=== PATIENT | female | born 1940 | race Hispanic/Latino ===

== ENCOUNTER 2017-02-24 10:02 | Emergency (ER) | payer BC, MEDICARE ==
[2017-02-24 10:02] VITALS: BMI 32.0
[2017-02-24 10:38] VITALS: TEMP 98.1
[2017-02-24] MEDS ORDERED: HYDROmorphone 1 mg/ml ISec IVP STA (10:39)
--- NOTE | 2017-02-24 11:23 | ED PDOC ---
Arrival/HPI - General Chief Complaint: Lower Extremity Problem/Injury Time Seen by Provider: 02/24/17 10:30 Historian: Patient - History of Present Illness Narrative History of Present Illness (Text): 02/24/17 11:26 76 yo F w/ PMH of HTN, presents with pain, swelling and redness to the R great toe x 2 days, symptoms started abruptly last night. Denies fevers, chills, trauma, injury, decrease in ROM, numbness. Has no additional complaints. PMD Aditi Past Medical History - Provider Review Nursing Documentation Reviewed: Yes - Infectious Disease Hx of Infectious Diseases: None - Cardiac Hx Cardiac Disorders: Yes Hx Hypertension: Yes - Pulmonary Hx Respiratory Disorders: No - Neurological Hx Neurological Disorder: No - HEENT Hx HEENT Disorder: No - Renal Hx Renal Disorder: No - Endocrine/Metabolic Hx Endocrine Disorders: No - Hematological/Oncological Hx Blood Disorders: No - Integumentary Hx Dermatological Disorder: No - Musculoskeletal/Rheumatological Hx Musculoskeletal Disorders: No - Gastrointestinal Hx Gastrointestinal Disorders: No - Genitourinary/Gynecological Hx Genitourinary Disorders: No - Psychiatric Hx Psychophysiologic Disorder: No Hx Substance Use: No - Surgical History Hx Hysterectomy: Yes - Anesthesia Hx Anesthesia: Yes Hx Anesthesia Reactions: No - Suicidal Assessment Feels Threatened In Home Enviroment: No Family/Social History - Physician Review Nursing Documentation Reviewed: Yes Family/Social History: Unknown Family HX Smoking Status: Unknown If Ever Smoked Hx Alcohol Use: No Hx Substance Use: No Allergies/Home Meds Allergies/Adverse Reactions: Allergies No Known Allergies Allergy (Verified 10/29/14 11:13) Home Medications: Home Meds Medication Instructions Recorded Confirmed Azilsartan Med/Chlorthalidone 40 mg PO DAILY 02/24/17 02/24/17 [Edarbyclor 40-25 mg Tablet] Review of Systems - Review of Systems Constitutional: absent: Fatigue, Weight Change, Fevers Musculoskeletal: Arthralgias, Joint Swelling. absent: Back Pain, Neck Pain Skin: absent: Rash, Pruritis, Skin Lesions Physical Exam Vital Signs Reviewed: Yes Vital Signs Temp Pulse Resp BP Pulse Ox 02/24/17 12:33 66 17 140/70 100 02/24/17 11:42 64 18 145/68 100 02/24/17 10:02 98.1 F 65 17 148/71 98 Temperature: Afebrile Blood Pressure: Normal Pulse: Regular Respiratory Rate: Normal Appearance: Positive for: Well-Appearing, Non-Toxic, Comfortable Pain Distress: Moderate Mental Status: Positive for: Alert and Oriented X 3 - Systems Exam Lower Extremity: Present: NORMAL PULSES, Capillary Refill < 2 s, Other (R foot : +erythema, edema and tenderness to the 1st MTP. ). No: CALF TENDERNESS, Deformity, Temperature Abnormalties, Neurovascularly Intact Neurological: Present: GCS=15, CN II-XII Intact, Motor Func Grossly Intact, Normal Sensory Function Skin: Present: Warm, Dry, Normal Color. No: Rashes Medical Decision Making ED Course and Treatment: 02/24/17 11:27 76 yo F w/ PMH of HTN, presents with pain, swelling and redness to the R great toe x 2 days, symptoms started abruptly last night. Diagnosis of gout discussed with the patient in great detail. Given a dose of indocin 25 mg PO, colchinine 1.2 mg PO and tramadol 50 mg PO for acute onset of the attack, will give another 0.6 mg PO dose of colchichine 1 hour after the initial dose. On re-evaluation, patient reports mild improvement of pain. Based on history, exam and diagnostic results plan will be for outpatient follow up. Patient advised to follow up with primary care physician in 1-2 days without fail. Advised to take medication as prescribed. Return to the emergency room at any time for any new or worsening symptoms. Patient states she fully agrees with and understands discharge instructions. States that she agrees with the plan and disposition. Verbalized and repeated discharge instructions and plan. I have given the patient opportunity to ask any additional questions. - Medication Orders Current Medication Orders: Discontinued Medications Colchicine (Colocrys) 1.2 mg PO STAT STA Stop: 02/24/17 11:08 Last Admin: 02/24/17 11:26 Dose: 1.2 mg Colchicine (Colocrys) 0.6 mg PO ONCE ONE Stop: 02/24/17 12:11 Last Admin: 02/24/17 12:31 Dose: 0.6 mg Indomethacin (Indocin) 25 mg PO STAT STA Stop: 02/24/17 11:09 Last Admin: 02/24/17 11:26 Dose: 25 mg MAR Pain Assessment Document 02/24/17 11:26 SF (Rec: 02/24/17 11:27 SF [id number]) Pain Reassessment Is this a pain reassessment? Yes Sleep Is patient sleeping during reassessment? No Presence of Pain Presence of Pain Yes Pain Scale Used Pain Scale Used Numeric Tramadol HCl (Ultram) 50 mg PO STAT STA Stop: 02/24/17 12:19 Last Admin: 02/24/17 12:32 Dose: 50 mg MAR Pain Assessment Document 02/24/17 12:32 SF (Rec: 02/24/17 12:32 [facility]-[id number]) Pain Reassessment Is this a pain reassessment? Yes Sleep Is patient sleeping during reassessment? 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 Disposition/Present on Arrival - Present on Arrival Any Indicators Present on Arrival: No History of DVT/PE: No History of Uncontrolled Diabetes: No Urinary Catheter: No History of Decub. Ulcer: No History Surgical Site Infection Following: None - Disposition Have Diagnosis and Disposition been Completed?: No Diagnosis: Gout Disposition: HOME/ ROUTINE Disposition Time: 11:31 Patient Plan: Discharge Condition: STABLE Discharge Instructions (ExitCare): Gout (ED) Print Language: [place] Additional Instructions: Thank you for letting us take care of you today. You were treated for gout. The emergency medical care you received today was directed at your acute symptoms. If you were prescribed any medication, please fill it and take as directed. It may take several days for your symptoms to resolve. Return to the Emergency Department if your symptoms worsen, do not improve, or if you have any other problems. Please contact your doctor in 2 days for re-evaluation and follow up. Bring any paperwork you were given at discharge with you along with any medications you are taking to your follow up visit. Our treatment cannot replace ongoing medical care by a primary care provider (PCP) outside of the emergency department. Thank you for allowing the [facility] team to be part of your care today. Prescriptions: Colchicine 0.6 mg PO DAILY #20 tablet Indomethacin [Indocin] 25 mg PO TID PRN #20 cap PRN Reason: Pain, Moderate (4-7) traMADol [Ultram] 50 mg PO TID PRN #12 tab PRN Reason: Pain, Moderate (4-7) Referrals: Tip Pennington MD [Primary Care Provider] - Follow up with primary Forms: [employer] (Citizen Of [place])
[2017-02-24 11:42] VITALS: O2SAT 100
[2017-02-24 12:36] VITALS: BP 140/70; PULSE 66; RESP 17
== END 2017-02-24 12:43 | disposition home or self-care (01) ==
LOC: ED 10:02
DX: M10.9 Gout, unspecified (principal); I10 Essential (primary) hypertension

== ENCOUNTER → 2018-06-11 | Outpatient (CLI) | payer MEDICARE | LOC: RAD 09:40 ==